=== PATIENT | female | born 1965 | race African-American/Black ===

== ENCOUNTER 2016-06-28 15:48 | Emergency (ER) | payer MEDICAID ==
[~2016-06-28] VITALS: Ht 170.2 cm; Wt 85.0 kg
[~2016-06-28 15:48] MED LIST: BACL20TA PO; DOCU-150 PO; GABA800T97 PO; HYDR-519 PO; OMEP20CA4 PO; RIVA20TA PO; SENN-39 PO; TIZA4CAP6 PO; VENL75CA55 PO
[2016-06-28] MEDS ORDERED: HYDROCODONE/ACETAMINOPHEN 5/325MG TABLET PO ONE (16:30)
[2016-06-28 17:48] LABS: INR 1.6; PARTIAL THROMBOPLASTIN TIME 40.1 sec (24.0-34.0); PROTHROMBIN TIME 16.5 sec
[2016-06-28] MEDS ORDERED: LORAZEPAM 1MG TABLET PO ONE (19:30)
[2016-06-28] MEDS ORDERED: DOCUSATE SODIUM 100MG CAPSULE PO ONE (21:30)
[2016-06-28] MEDS ORDERED: POLYETHYLENE GLYCOL 3350 (17GM) 1 DOSE PACK PO ONE (21:30)
[2016-06-28] MEDS ORDERED: ONDANSETRON 4MG ODT PO ONE (23:00)
[2016-06-29] MEDS ORDERED: NA PHOS,M-B/NA PHOS,DI-BA ENEMA 118ML PR ONE (00:45)
[2016-06-29] MEDS ORDERED: KETOROLAC 60MG/2ML VIAL IM ONE (01:30)
[2016-06-29] MEDS ORDERED: LORAZEPAM 2MG/ML CPJ IM ONE (05:00)
[2016-06-29] MEDS ORDERED: SODIUM CHLORIDE 0.9% 1,000 ML IV ONE (05:15)
[2016-06-29 10:50] VITALS: BP 105/60
== END 2016-06-29 10:54 | disposition home or self-care (01) ==
LOC: ER 15:49
DX: K59.00 Constipation, unspecified (principal); K21.9 Gastro-esophageal reflux disease without esophagitis; Z86.718 Personal history of other venous thrombosis and embolism; G82.20 Paraplegia, unspecified; Z79.01 Long term (current) use of anticoagulants
CPT/HCPCS: 36415; 74000; 85610; 85730; 93970; 96360; 96361; 96372; 99285; C1893; J1885; J2060; J7030; Q0162; Z7610

== ENCOUNTER 2016-10-13 20:27 | Emergency (ER) | payer MEDICARE, MEDICAID ==
[~2016-10-13] VITALS: Ht 167.6 cm; Wt 81.0 kg
[2016-10-13] MEDS ORDERED: MORPHINE SULFATE 10 MG/ML CPJ IM ONE (22:00)
[2016-10-14] MEDS ORDERED: MORPHINE SULFATE 10 MG/ML CPJ IM ONE ×2 (04:00)
[2016-10-14 08:48] VITALS: BP 143/88
== END 2016-10-14 09:47 | disposition home or self-care (01) ==
LOC: ER 20:33
DX: G89.29 Other chronic pain (principal); M79.605 Pain in left leg; M79.604 Pain in right leg; K21.9 Gastro-esophageal reflux disease without esophagitis
CPT/HCPCS: 51702; 93970; 96372; 99284; J2270; A4315

== ENCOUNTER 2017-09-21 06:20 | Emergency (ER) | payer MEDICARE, MEDICAID ==
[~2017-09-21] VITALS: Ht 165.1 cm; Wt 82.0 kg
[~2017-09-21 06:20] MED LIST changes: +SENN-178 PO; -SENN-39 PO
[2017-09-21] MEDS ORDERED: MORPHINE SULFATE 10 MG/ML CPJ IM ONE (07:15)
[2017-09-21] MEDS ORDERED: ONDANSETRON 4MG ODT PO ONE (07:15)
[2017-09-21 11:00] VITALS: BP 122/77
== END 2017-09-21 11:25 | disposition home or self-care (01) ==
LOC: ER 08:36
DX: G89.29 Other chronic pain (principal); M79.605 Pain in left leg; M79.604 Pain in right leg; G82.20 Paraplegia, unspecified
CPT/HCPCS: 96372; 99283; J2270; Q0162

== ENCOUNTER 2017-10-24 18:33 | Emergency (ER) | payer MEDICARE, MEDICAID ==
[~2017-10-24] VITALS: Ht 167.6 cm; Wt 78.0 kg
[2017-10-24] MEDS ORDERED: SODIUM CHLORIDE 0.9% 1,000 ML IV ONE ×2 (18:43→20:01)
[2017-10-24] MEDS ORDERED: HALOPERIDOL LACTATE 5MG/ML VIAL IM ONE (18:45)
[2017-10-24] MEDS ORDERED: LORAZEPAM 2MG/ML CPJ IM ONE (18:45)
[2017-10-24] MEDS ORDERED: LORAZEPAM 2MG/ML CPJ IV ONE ×2 (19:15)
[2017-10-24 19:53] LABS: BASOPHILS % 0.8 % (0.0-2.0); EOSINOPHILS % 1.1 % (0.0-5.0); HEMATOCRIT. 35.2 % (36.0-48.0); HEMOGLOBIN. 11.3 g/dL (12.0-16.0); LYMPHOCYTES % 11.8 % (20.0-50.0); MEAN CORPUSCULAR HEMOGLOBIN 28.4 pg (28.0-32.0); MEAN CORPUSCULAR VOLUME 88.2 fL (81.0-99.0); MEAN PLATELET VOLUME 8.1 fl (7.4-10.4); NEUTROPHILS % 81.3 % (40.0-76.0); PLATELET 407 x1000/uL (130-400); RED CELL DISTRIBUTION WIDTH 14.3 % (11.6-14.6)
[2017-10-24 19:57] LABS: CHLORIDE 109 mEq/L (98-107)
[2017-10-24 20:01] LABS: ETHANOL BLOOD < 10 mg/dL
[2017-10-24 20:04] LABS: CLARITY URINE TURBID (CLEAR); COLOR URINE YELLOW (YELLOW); KETONES URINE NEGATIVE (NEGATIVE); LEUKOCYTE ESTERASE URINE 2+ (NEGATIVE); NITRITE URINE NEGATIVE (NEGATIVE); OCCULT BLOOD URINE 3+ (NEGATIVE); PROTEIN URINE 2+ (NEGATIVE); SPECIFIC GRAVITY URINE 1.022 (1.005-1.030)
[2017-10-24 20:12] LABS: PARTIAL THROMBOPLASTIN TIME 26.6 sec (23.4-31.0); PROTHROMBIN TIME 10.5 sec (9.4-11.6)
[2017-10-24 20:13] LABS: *AMPHETAMINES SCREEN URINE NEGATIVE (NEGATIVE); *BARBITURATES SCREEN URINE NEGATIVE (NEGATIVE); *BENZODIAZEPINES SCREEN URINE NEGATIVE (NEGATIVE); *COCAINE SCREEN URINE NEGATIVE (NEGATIVE)
[2017-10-24 20:14] LABS: CANNABINOID URINE SCREEN NEGATIVE (NEGATIVE); METHADONE URINE SCREEN NEGATIVE (NEGATIVE); OPIATES URINE SCREEN NEGATIVE (NEGATIVE); PHENCYCLIDINE URINE SCREEN NEGATIVE (NEGATIVE)
[2017-10-24 20:27] LABS: HCG SCREEN NEGATIVE
[2017-10-24] MEDS ORDERED: CEFTRIAXONE 1 G PREMIX 50 ML IV ONE (20:36)
[2017-10-25] MEDS ORDERED: DEXTROSE 50% WATER 50ML SYRINGE IV ONE (09:23)
[2017-10-25] MEDS ORDERED: KETOROLAC 30MG/ML VIAL IV ONE (15:15)
[2017-10-25 16:00] VITALS: BP 140/94
== END 2017-10-25 16:40 | disposition home or self-care (01) ==
LOC: ER 18:33
DX: T50.902A Poisoning by unspecified drugs, medicaments and biological substances, intentional self-harm, initial encounter (principal); R41.82 Altered mental status, unspecified; F43.0 Acute stress reaction; R45.1 Restlessness and agitation; F91.8 Other conduct disorders; Y92.098 Other place in other non-institutional residence as the place of occurrence of the external cause; R03.0 Elevated blood-pressure reading, without diagnosis of hypertension; N39.0 Urinary tract infection, site not specified; E87.6 Hypokalemia; R73.9 Hyperglycemia, unspecified; G82.20 Paraplegia, unspecified; Z79.899 Other long term (current) drug therapy; R79.89 Other specified abnormal findings of blood chemistry
CPT/HCPCS: 36415; 70450; 71045; 72125; 80053; 80305; 80307; 80329; 81003; 82962; 84703; 85025; 85610; 85730; 87077; 87086; 87186; 93005; 96361; 96365; 96372; 96375; 99285; G0482; J0696; J1630; J1885; J2060; J7030; J7040

== ENCOUNTER 2017-10-28 20:57 | Emergency (ER) | payer MEDICARE, MEDICAID ==
[~2017-10-28] VITALS: Ht 170.2 cm; Wt 82.0 kg
[2017-10-28] MEDS ORDERED: KETOROLAC 30MG/ML VIAL IV STA (21:56)
[2017-10-28] MEDS ORDERED: DIAZEPAM 5 MG TABLET PO ONE (22:00)
[2017-10-28 22:44] LABS: BASOPHILS % 0.7 % (0.0-2.0); EOSINOPHILS % 1.9 % (0.0-5.0); HEMATOCRIT. 31.8 % (36.0-48.0); HEMOGLOBIN. 10.5 g/dL (12.0-16.0); LYMPHOCYTES % 12.9 % (20.0-50.0); MEAN CORPUSCULAR HEMOGLOBIN 29.1 pg (28.0-32.0); MEAN CORPUSCULAR VOLUME 88.4 fL (81.0-99.0); MEAN PLATELET VOLUME 7.7 fl (7.4-10.4); MONOCYTES % 9.8 % (2.0-8.0); NEUTROPHILS % 74.7 % (40.0-76.0); PLATELET 357 x1000/uL (130-400); RED CELL DISTRIBUTION WIDTH 14.3 % (11.6-14.6)
[2017-10-28] MEDS ORDERED: KETOROLAC 15MG/ML VIAL IV ONE (22:45)
[2017-10-28 22:49] LABS: CHLORIDE 107 mEq/L (98-107)
[2017-10-28 22:50] LABS: INR 1.1; PROTHROMBIN TIME 11.2 sec (9.4-11.6)
[2017-10-28] MEDS ORDERED: POTASSIUM CHLORIDE 20MEQ/PACKET PO ONE (23:30)
[2017-10-29 01:21] LABS: CLARITY URINE CLEAR (CLEAR); COLOR URINE YELLOW (YELLOW); KETONES URINE NEGATIVE (NEGATIVE); LEUKOCYTE ESTERASE URINE TRACE (NEGATIVE); NITRITE URINE NEGATIVE (NEGATIVE); OCCULT BLOOD URINE 1+ (NEGATIVE); PROTEIN URINE NEGATIVE (NEGATIVE); SPECIFIC GRAVITY URINE 1.009 (1.005-1.030)
[2017-10-29 02:46] VITALS: BP 131/81
== END 2017-10-29 05:06 | disposition home or self-care (01) ==
LOC: ER 20:57
DX: N39.0 Urinary tract infection, site not specified (principal)
CPT/HCPCS: 36415; 51702; 80053; 81003; 85025; 85610; 96374; 99284; J1885; 51701

== ENCOUNTER 2017-11-16 11:32 | Inpatient (IN) | payer MEDICARE, MEDICAID ==
[~2017-11-16] VITALS: Ht 185.4 cm; Wt 106.6 kg
[2017-11-16] MEDS ORDERED: LORAZEPAM 2MG/ML CPJ IM ONE ×2 (12:15→18:15)
[2017-11-16 16:45] LABS: COLOR URINE RED (YELLOW); KETONES URINE 1+ (NEGATIVE); LEUKOCYTE ESTERASE URINE 1+ (NEGATIVE); NITRITE URINE POSITIVE (NEGATIVE); OCCULT BLOOD URINE 3+ (NEGATIVE); PROTEIN URINE 3+ (NEGATIVE); SPECIFIC GRAVITY URINE 1.042 (1.005-1.030)
[2017-11-16 16:52] LABS: CLARITY URINE CLOUDY (CLEAR)
[2017-11-16] MEDS ORDERED: KETOROLAC 30MG/ML VIAL IV STA (17:29)
[2017-11-16] MEDS ORDERED: LORAZEPAM 2MG/ML CPJ IV ONE (17:30)
[2017-11-16] MEDS ORDERED: CEFTRIAXONE 1 G PREMIX 50 ML IV ONE (17:30)
[2017-11-16 18:23] LABS: BASOPHILS % 0.8 % (0.0-2.0); EOSINOPHILS % 2.2 % (0.0-5.0); HEMATOCRIT. 38.6 % (36.0-48.0); HEMOGLOBIN. 12.6 g/dL (12.0-16.0); LYMPHOCYTES % 18.1 % (20.0-50.0); MEAN CORPUSCULAR HEMOGLOBIN 29.2 pg (28.0-32.0); MEAN CORPUSCULAR VOLUME 89.7 fL (81.0-99.0); MEAN PLATELET VOLUME 8.2 fl (7.4-10.4); MONOCYTES % 9.8 % (2.0-8.0); NEUTROPHILS % 69.1 % (40.0-76.0); PLATELET 410 x1000/uL (130-400); RED BLOOD CELL COUNT 4.31 mill/uL (4.2-5.4); RED CELL DISTRIBUTION WIDTH 14.4 % (11.6-14.6)
[2017-11-16 18:26] LABS: CHLORIDE 105 mEq/L (98-107); INR 1.1; PROTHROMBIN TIME 10.9 sec (9.1-11.1)
[2017-11-16 18:30] LABS: ETHANOL BLOOD < 10 mg/dL
[2017-11-16] MEDS ORDERED: SODIUM CHLORIDE 0.9% 1,000 ML IV ONE ×3 (19:06→21:56)
[2017-11-16] MEDS ORDERED: IBUPROFEN 600MG TABLET PO PRN (19:15)
[2017-11-16] MEDS ORDERED: SODIUM CHLORIDE 0.9% 1,000 ML IV SCH (19:44)
[2017-11-16] MEDS ORDERED: MEROPENEM 1,000 MG in SODIUM CHLORIDE 0.9% 100 ML IV SCH (19:45)
[2017-11-16] MEDS ORDERED: MAGNESIUM/ALUMINUM HYDROXIDE/SIMETHICONE 30ML UDC PO PRN (19:45)
[2017-11-16] MEDS ORDERED: DOCUSATE SODIUM 100MG CAPSULE PO PRN (19:45)
[2017-11-16] MEDS ORDERED: NITROGLYCERIN 0.4MG TABLET SL SL PRN (19:45)
[2017-11-16] MEDS ORDERED: GUAIFENESIN 200MG/10ML SUGAR FREE UDC PO PRN (19:45)
[2017-11-16] MEDS ORDERED: ACETAMINOPHEN 325MG TABLET PO PRN (19:45)
[2017-11-16] MEDS ORDERED: DIPHENHYDRAMINE 50MG/ML VIAL IV PRN (19:45)
[2017-11-16] MEDS ORDERED: ONDANSETRON HCL 4MG/2ML VIAL IV PRN (19:45)
[2017-11-16 20:00] VITALS: BP 158/83
[2017-11-16] MEDS ORDERED: HALOPERIDOL LACTATE 5MG/ML VIAL IM ONE (20:15)
[2017-11-16] MEDS ORDERED: HALOPERIDOL LACTATE 5MG/ML VIAL IM PRN (20:30)
[2017-11-16] MEDS ORDERED: IPRATROPIUM/ALBUTEROL 0.5-3(2.5)MG/3ML NEB INH PRN (21:00)
[2017-11-16] MEDS ORDERED: ZOLPIDEM TARTRATE 5MG TABLET PO PRN (21:00)
[2017-11-16] MEDS ORDERED: VENLAFAXINE HCL 37.5MG SR CAPSULE 24HR PO SCH (21:00)
[2017-11-16] MEDS ORDERED: NA PHOS,M-B/NA PHOS,DI-BA ENEMA 118ML PR PRN (21:00)
[2017-11-16] MEDS ORDERED: FAMOTIDINE 20MG TABLET PO SCH (21:00)
[2017-11-16] MEDS ORDERED: ASCORBIC ACID 500 MG TABLET PO SCH (21:00)
[2017-11-16 21:38] LABS: *AMPHETAMINES SCREEN URINE NEGATIVE (NEGATIVE); *BARBITURATES SCREEN URINE NEGATIVE (NEGATIVE); *BENZODIAZEPINES SCREEN URINE PRESUMTIVE POSITIVE (NEGATIVE); *COCAINE SCREEN URINE NEGATIVE (NEGATIVE); METHADONE URINE SCREEN NEGATIVE (NEGATIVE); OPIATES URINE SCREEN PRESUMTIVE POSITIVE (NEGATIVE)
[2017-11-16 21:39] LABS: CANNABINOID URINE SCREEN NEGATIVE (NEGATIVE); PHENCYCLIDINE URINE SCREEN NEGATIVE (NEGATIVE)
[2017-11-16 21:45] VITALS: BP 180/103
[2017-11-16] MEDS ORDERED: BACLOFEN 20MG TABLET PO SCH (22:00)
[2017-11-16] MEDS ORDERED: SODIUM CHLORIDE 0.9% 1000ML BAG (SEPSIS BOLUS) IV ONE ×2 (22:15)
[2017-11-16 23:00] VITALS: BP 158/83
[2017-11-16] MEDS: SODIUM CHLORIDE 0.9% 1,000 ML IV SCH (23:00)
[2017-11-16] MEDS ORDERED: ONDANSETRON 4MG ODT PO PRN (23:00)
[2017-11-17] VITALS (7 sets, daily range): BP systolic 90–180; BP diastolic 57–110
[2017-11-17] MEDS: MEROPENEM 1,000 MG in SODIUM CHLORIDE 0.9% 100 ML IV SCH ×3 (01:29→17:35)
[2017-11-17] MEDS: CLONIDINE 0.1MG TABLET PO PRN ×2 (02:07→19:50)
[2017-11-17] MEDS: LORAZEPAM 0.5MG TABLET PO PRN ×2 (02:07→18:57)
[2017-11-17] MEDS: KETOROLAC 15MG/ML VIAL IV PRN ×3 (02:08→19:59)
[2017-11-17] MEDS: BACLOFEN 20MG TABLET PO SCH ×3 (06:03→21:42)
[2017-11-17] MEDS: VENLAFAXINE HCL 37.5MG SR CAPSULE 24HR PO SCH ×2 (09:00→23:00)
[2017-11-17] MEDS ORDERED: ZINC SULFATE 220 MG ( 50 ) CAPSULE PO SCH (09:00)
[2017-11-17] MEDS: ASCORBIC ACID 500 MG TABLET PO SCH ×2 (09:34→21:42)
[2017-11-17] MEDS: FAMOTIDINE 20MG TABLET PO SCH ×2 (09:35→21:42)
[2017-11-17] MEDS: ZINC SULFATE 220 MG ( 50 ) CAPSULE PO SCH (09:35)
[2017-11-17 13:10] LABS: CHLORIDE 109 mEq/L (98-107)
[2017-11-17 13:24] LABS: BASOPHILS % 0.8 % (0.0-2.0); EOSINOPHILS % 3.6 % (0.0-5.0); HEMATOCRIT. 38.2 % (36.0-48.0); HEMOGLOBIN. 12.4 g/dL (12.0-16.0); LYMPHOCYTES % 21.9 % (20.0-50.0); MEAN CORPUSCULAR HEMOGLOBIN 29.3 pg (28.0-32.0); MEAN CORPUSCULAR VOLUME 90.1 fL (81.0-99.0); MEAN PLATELET VOLUME 9.3 fl (7.4-10.4); NEUTROPHILS % 65.7 % (40.0-76.0); PLATELET 345 x1000/uL (130-400); RED BLOOD CELL COUNT 4.24 mill/uL (4.2-5.4); RED CELL DISTRIBUTION WIDTH 14.6 % (11.6-14.6)
[2017-11-17] MEDS: SODIUM CHLORIDE 0.9% 1,000 ML IV SCH (13:33)
[2017-11-17] MEDS ORDERED: RIVAROXABAN 20 MG TABLET PO SCH (17:00)
[2017-11-17] MEDS ORDERED: RIVAROXABAN 10 MG TABLET PO SCH (17:00)
[2017-11-17] MEDS: TRAMADOL 50MG TABLET PO PRN (18:48)
[2017-11-18] VITALS: BP 148/83
[2017-11-18] MEDS: MEROPENEM 1,000 MG in SODIUM CHLORIDE 0.9% 100 ML IV SCH ×2 (01:14→08:33)
[2017-11-18] MEDS: KETOROLAC 15MG/ML VIAL IV PRN ×2 (01:58→08:37)
[2017-11-18] MEDS: LORAZEPAM 0.5MG TABLET PO PRN (03:09)
[2017-11-18 04:00] VITALS: BP 140/88
[2017-11-18] MEDS: BACLOFEN 20MG TABLET PO SCH ×2 (05:04→13:32)
[2017-11-18 08:00] VITALS: BP 150/90
[2017-11-18] MEDS: ASCORBIC ACID 500 MG TABLET PO SCH (08:34)
[2017-11-18] MEDS: VENLAFAXINE HCL 37.5MG SR CAPSULE 24HR PO SCH (08:34)
[2017-11-18] MEDS: FAMOTIDINE 20MG TABLET PO SCH (08:35)
[2017-11-18] MEDS: ZINC SULFATE 220 MG ( 50 ) CAPSULE PO SCH (08:35)
[2017-11-18] MEDS: TRAMADOL 50MG TABLET PO PRN (11:30)
[2017-11-18 12:00] VITALS: BP 174/83
[2017-11-18] MEDS: CLONIDINE 0.1MG TABLET PO PRN (12:27)
[2017-11-18] MEDS ORDERED: POTASSIUM CHLORIDE 20MEQ/PACKET PO SCH (13:00)
[2017-11-18 13:38] VITALS: BP 174/83
[2017-11-18] MEDS ORDERED: MEROPENEM 1,000 MG in SODIUM CHLORIDE 0.9% 100 ML IV SCH (22:00)
== END 2017-11-18 14:35 | disposition home or self-care (01) | DRG 871 ==
LOC: ER 11:32 → 6EST 19:10 → ENRESERV 20:39 → ER 22:05 → EDBEDREQ 22:13
PROVIDERS: ADMIT Internal Medicine; ATTEND Internal Medicine
DX: A41.9 Sepsis, unspecified organism (principal); G92 Toxic encephalopathy; N39.0 Urinary tract infection, site not specified; G82.20 Paraplegia, unspecified; E87.0 Hyperosmolality and hypernatremia; E66.01 Morbid (severe) obesity due to excess calories; L89.629 Pressure ulcer of left heel, unspecified stage; S70.211A Abrasion, right hip, initial encounter; X58.XXXA Exposure to other specified factors, initial encounter; Y93.89 Activity, other specified; Y92.89 Other specified places as the place of occurrence of the external cause; Y99.8 Other external cause status; Z78.1 Physical restraint status; Z86.718 Personal history of other venous thrombosis and embolism; Z68.31 Body mass index [BMI] 31.0-31.9, adult; Z87.828 Personal history of other (healed) physical injury and trauma; Z99.3 Dependence on wheelchair; Z79.01 Long term (current) use of anticoagulants; Z79.899 Other long term (current) drug therapy
CPT/HCPCS: 36415; 51702; 70450; 71045; 76770; 80053; 80305; 81003; 83036; 83605; 84484; 85025; 85610; 87040; 87086; 93005; 93970; 96365; 96366; 96372; 96375; 99285; G0482; J0696; J1200; J1630; J1885; J2060; J2185; J7030; J7050; Q0162; A4315

== ENCOUNTER 2018-07-07 13:39 | Inpatient (IN) | payer MEDICARE, MEDICAID ==
[~2018-07-07] VITALS: Ht 167.6 cm; Wt 72.6 kg
[2018-07-07 15:52] LABS: HEMATOCRIT. 34.3 % (36.0-48.0); HEMOGLOBIN. 11.1 g/dL (12.0-16.0); MEAN CORPUSCULAR HEMOGLOBIN 29.2 pg (28.0-32.0); MEAN CORPUSCULAR VOLUME 90.4 fL (81.0-99.0); MEAN PLATELET VOLUME 7.5 fl (7.4-10.4); PLATELET 343 x1000/uL (130-400); RED BLOOD CELL COUNT 3.79 mill/uL (4.2-5.4); RED CELL DISTRIBUTION WIDTH 16.5 % (11.6-14.6)
[2018-07-07 15:53] LABS: CHLORIDE 103 mEq/L (98-107)
[2018-07-07 15:55] LABS: PARTIAL THROMBOPLASTIN TIME 31.7 sec (23.4-31.0); PROTHROMBIN TIME 10.7 sec (9.6-11.0)
[2018-07-07 16:04] LABS: PLATELET ESTIMATE NORMAL
[2018-07-07] MEDS ORDERED: SODIUM CHLORIDE 0.9% 1000ML BAG (SEPSIS BOLUS) IV ONE (16:45)
[2018-07-07] MEDS ORDERED: CEFTRIAXONE 1 G PREMIX 50 ML IV ONE (16:45)
[2018-07-07] MEDS ORDERED: LEVOFLOXACIN 500MG PREMIX 100 ML IV ONE (16:45)
[2018-07-07] MEDS ORDERED: MAGNESIUM/ALUMINUM HYDROXIDE/SIMETHICONE 30ML UDC PO PRN (17:00)
[2018-07-07] MEDS ORDERED: ACETAMINOPHEN 325MG TABLET PO PRN (17:00)
[2018-07-07] MEDS ORDERED: ONDANSETRON HCL 4MG/2ML INJ IV PRN (17:00)
[2018-07-07] MEDS ORDERED: IPRATROPIUM/ALBUTEROL 0.5-3(2.5)MG/3ML NEB INH PRN (17:00)
[2018-07-07] MEDS ORDERED: GUAIFENESIN 200MG/10ML SUGAR FREE UDC PO PRN (17:00)
[2018-07-07] MEDS ORDERED: LEVOFLOXACIN 500MG PREMIX 100 ML IV SCH (17:00)
[2018-07-07] MEDS ORDERED: DOCUSATE SODIUM 100MG CAPSULE PO PRN (17:00)
[2018-07-07] MEDS ORDERED: NITROGLYCERIN 0.4MG TABLET SL SL PRN (17:00)
[2018-07-07 17:04] LABS: CLARITY URINE TURBID (CLEAR); COLOR URINE YELLOW (YELLOW); KETONES URINE NEGATIVE (NEGATIVE); LEUKOCYTE ESTERASE URINE 3+ (NEGATIVE); NITRITE URINE NEGATIVE (NEGATIVE); OCCULT BLOOD URINE 3+ (NEGATIVE); PH URINE 6.5 (4.5-8.0); PROTEIN URINE 3+ (NEGATIVE); SPECIFIC GRAVITY URINE 1.022 (1.005-1.030); UROBILINOGEN URINE 0.2 E.U./dL (0.2-1.0)
[2018-07-07] MEDS: MORPHINE SULFATE 4 MG/ML CPJ (NOT FOR IM USE) IV PRN (19:06)
[2018-07-07 22:45] VITALS: BP_SYST 100; BP_SYST 113; BP_DIAS 58; BP_DIAS 65
[2018-07-08] VITALS: BP 113/65
[2018-07-08] MEDS: MORPHINE SULFATE 4 MG/ML CPJ (NOT FOR IM USE) IV PRN ×2 (01:07→18:18)
[2018-07-08 04:02] VITALS: BP 101/58
[2018-07-08] MEDS: BACLOFEN 20MG TABLET PO SCH ×3 (06:09→21:47)
[2018-07-08] MEDS: SODIUM CHLORIDE 0.9% 1,000 ML IV SCH (06:12)
[2018-07-08 08:00] VITALS: BP 100/55
[2018-07-08] MEDS: ZINC SULFATE 220 MG ( 50 ) CAPSULE PO SCH (08:52)
[2018-07-08] MEDS: LORAZEPAM 0.5MG TABLET PO PRN (08:52)
[2018-07-08] MEDS: ASCORBIC ACID 500 MG TABLET PO SCH ×2 (08:52→21:47)
[2018-07-08] MEDS: VENLAFAXINE HCL 75MG TABLET PO SCH ×2 (08:52→21:47)
[2018-07-08] MEDS ORDERED: CEFTRIAXONE 1 G PREMIX 50 ML IV SCH (09:00)
[2018-07-08 12:13] VITALS: BP 132/90
[2018-07-08 16:00] VITALS: BP 129/91
[2018-07-08] MEDS: RIVAROXABAN 20 MG TABLET PO SCH (16:35)
[2018-07-08] MEDS: CEFTRIAXONE 1 G PREMIX 50 ML IV SCH (16:36)
[2018-07-08] MEDS: LEVOFLOXACIN 500MG PREMIX 100 ML IV SCH (18:00)
[2018-07-08 20:01] VITALS: BP 131/93
[2018-07-08] MEDS: ZOLPIDEM TARTRATE 5MG TABLET PO PRN (21:47)
[2018-07-08] MEDS: TRAMADOL 50MG TABLET PO PRN (21:47)
[2018-07-09] VITALS: BP 120/82
[2018-07-09] MEDS: MORPHINE SULFATE 4 MG/ML CPJ (NOT FOR IM USE) IV PRN ×4 (00:29→21:52)
[2018-07-09] MEDS: LORAZEPAM 0.5MG TABLET PO PRN ×3 (00:30→23:57)
[2018-07-09] MEDS: SODIUM CHLORIDE 0.9% 1,000 ML IV SCH ×2 (01:31→15:50)
[2018-07-09 04:00] VITALS: BP 141/87
[2018-07-09] MEDS: BACLOFEN 20MG TABLET PO SCH ×3 (07:06→21:28)
[2018-07-09 08:00] VITALS: BP 128/90
[2018-07-09] MEDS: ASCORBIC ACID 500 MG TABLET PO SCH ×2 (08:32→21:28)
[2018-07-09] MEDS: ZINC SULFATE 220 MG ( 50 ) CAPSULE PO SCH (08:32)
[2018-07-09] MEDS: VENLAFAXINE HCL 75MG TABLET PO SCH ×2 (08:32→21:28)
[2018-07-09 12:00] VITALS: BP 153/73
[2018-07-09 16:00] VITALS: BP 142/86
[2018-07-09] MEDS: RIVAROXABAN 20 MG TABLET PO SCH (16:30)
[2018-07-09] MEDS: CEFTRIAXONE 1 G PREMIX 50 ML IV SCH (16:30)
[2018-07-09] MEDS: LEVOFLOXACIN 500MG PREMIX 100 ML IV SCH (18:08)
[2018-07-09 20:00] VITALS: BP 141/76
[2018-07-10] VITALS: BP 128/69
[2018-07-10 04:00] VITALS: BP 135/72
[2018-07-10] MEDS: MORPHINE SULFATE 4 MG/ML CPJ (NOT FOR IM USE) IV PRN ×3 (04:43→20:02)
[2018-07-10] MEDS: BACLOFEN 20MG TABLET PO SCH ×3 (05:40→21:36)
[2018-07-10] MEDS: BACITRACIN/POLYMYXIN B SULFATE OINT 15GM TOP SCH ×2 (09:00→21:47)
[2018-07-10 09:06] VITALS: BP 114/62
[2018-07-10] MEDS: ZINC SULFATE 220 MG ( 50 ) CAPSULE PO SCH (09:18)
[2018-07-10] MEDS: ASCORBIC ACID 500 MG TABLET PO SCH ×2 (09:18→21:36)
[2018-07-10] MEDS: VENLAFAXINE HCL 75MG TABLET PO SCH ×2 (09:18→21:36)
[2018-07-10] MEDS: SODIUM CHLORIDE 0.9% 1,000 ML IV SCH ×2 (09:22→12:56)
[2018-07-10 12:35] VITALS: BP 170/92
[2018-07-10] MEDS: CLONIDINE 0.1MG TABLET PO PRN (12:54)
[2018-07-10] MEDS: CEFTRIAXONE 1 G PREMIX 50 ML IV SCH (16:23)
[2018-07-10] MEDS: RIVAROXABAN 20 MG TABLET PO SCH (16:23)
[2018-07-10] MEDS: LEVOFLOXACIN 500MG PREMIX 100 ML IV SCH (18:38)
[2018-07-10 20:07] VITALS: BP 120/77
[2018-07-10] MEDS: ZOLPIDEM TARTRATE 5MG TABLET PO PRN (21:46)
[2018-07-10] MEDS: TRAMADOL 50MG TABLET PO PRN (21:55)
[2018-07-11 00:08] VITALS: BP 142/85
[2018-07-11] MEDS: MORPHINE SULFATE 4 MG/ML CPJ (NOT FOR IM USE) IV PRN ×3 (03:24→15:49)
[2018-07-11 03:37] VITALS: BP 122/66
[2018-07-11] MEDS: BACLOFEN 20MG TABLET PO SCH ×3 (05:10→21:15)
[2018-07-11] MEDS: SODIUM CHLORIDE 0.9% 1,000 ML IV SCH ×2 (05:10→21:16)
[2018-07-11] MEDS: TRAMADOL 50MG TABLET PO PRN ×3 (05:12→20:18)
[2018-07-11] MEDS: BACITRACIN/POLYMYXIN B SULFATE OINT 15GM TOP SCH ×2 (08:28→20:17)
[2018-07-11] MEDS: ZINC SULFATE 220 MG ( 50 ) CAPSULE PO SCH (08:28)
[2018-07-11] MEDS: ASCORBIC ACID 500 MG TABLET PO SCH ×2 (08:28→20:18)
[2018-07-11] MEDS: VENLAFAXINE HCL 75MG TABLET PO SCH ×2 (08:28→20:17)
[2018-07-11 08:50] VITALS: BP 163/95
[2018-07-11 12:42] VITALS: BP 147/90
[2018-07-11] MEDS: CEFTRIAXONE 1 G PREMIX 50 ML IV SCH (15:44)
[2018-07-11] MEDS ORDERED: BACLOFEN 20MG TABLET PO NR (16:30)
[2018-07-11 16:57] VITALS: BP 159/83
[2018-07-11] MEDS: LEVOFLOXACIN 500MG PREMIX 100 ML IV SCH (18:01)
[2018-07-11] MEDS: RIVAROXABAN 20 MG TABLET PO SCH (18:01)
[2018-07-11] MEDS: ZOLPIDEM TARTRATE 5MG TABLET PO PRN (20:17)
[2018-07-11 20:37] VITALS: BP 158/76
[2018-07-12 00:05] VITALS: BP 147/85
[2018-07-12] MEDS: MORPHINE SULFATE 4 MG/ML CPJ (NOT FOR IM USE) IV PRN ×3 (01:08→18:05)
[2018-07-12 04:00] VITALS: BP 161/75
[2018-07-12] MEDS: TRAMADOL 50MG TABLET PO PRN ×2 (04:51→14:51)
[2018-07-12] MEDS: BACLOFEN 20MG TABLET PO SCH ×2 (05:36→13:17)
[2018-07-12] MEDS: ASCORBIC ACID 500 MG TABLET PO SCH (09:13)
[2018-07-12] MEDS: VENLAFAXINE HCL 75MG TABLET PO SCH (09:13)
[2018-07-12] MEDS: CLONIDINE 0.1MG TABLET PO PRN ×2 (09:14→15:36)
[2018-07-12] MEDS: ZINC SULFATE 220 MG ( 50 ) CAPSULE PO SCH (09:14)
[2018-07-12] MEDS: BACITRACIN/POLYMYXIN B SULFATE OINT 15GM TOP SCH (09:15)
[2018-07-12] MEDS: SODIUM CHLORIDE 0.9% 1,000 ML IV SCH (10:40)
[2018-07-12 13:35] VITALS: BP 148/89
[2018-07-12 16:00] VITALS: BP_SYST 150; BP_SYST 180; BP_DIAS 79; BP_DIAS 92
[2018-07-12] MEDS: CEFTRIAXONE 1 G PREMIX 50 ML IV SCH (16:00)
[2018-07-12] MEDS: LEVOFLOXACIN 500MG PREMIX 100 ML IV SCH (18:00)
[2018-07-12 18:05] VITALS: BP 150/79
[2018-07-12] MEDS: RIVAROXABAN 20 MG TABLET PO SCH (18:05)
== END 2018-07-12 19:25 | disposition left against medical advice (07) | DRG 872 ==
LOC: ER 13:39 → EDBEDREQTM 15:03 → EDBEDREQ 15:03 → EDBEDREQSVC 15:03 → 6WST 16:58 → EDBEDREQTM 17:07 → EDBEDREQ 17:07 → ENRESERV 20:31
PROVIDERS: ADMIT Internal Medicine; ATTEND Internal Medicine
DX: A41.9 Sepsis, unspecified organism (principal); G82.20 Paraplegia, unspecified; I82.411 Acute embolism and thrombosis of right femoral vein; N39.0 Urinary tract infection, site not specified; E86.0 Dehydration; L97.529 Non-pressure chronic ulcer of other part of left foot with unspecified severity; E66.01 Morbid (severe) obesity due to excess calories; E11.621 Type 2 diabetes mellitus with foot ulcer; D63.8 Anemia in other chronic diseases classified elsewhere; F32.9 Major depressive disorder, single episode, unspecified; R29.6 Repeated falls; T14.8XXA Other injury of unspecified body region, initial encounter; X58.XXXA Exposure to other specified factors, initial encounter; L89.629 Pressure ulcer of left heel, unspecified stage; S90.812A Abrasion, left foot, initial encounter; R74.0 Nonspecific elevation of levels of transaminase and lactic acid dehydrogenase [LDH]; L89.312 Pressure ulcer of right buttock, stage 2; Z86.711 Personal history of pulmonary embolism; Z86.718 Personal history of other venous thrombosis and embolism; Z91.81 History of falling; Y93.89 Activity, other specified; Y92.89 Other specified places as the place of occurrence of the external cause; Y99.8 Other external cause status; Z68.25 Body mass index [BMI] 25.0-25.9, adult; Z79.4 Long term (current) use of insulin
CPT/HCPCS: 36415; 71045; 72170; 83036; 83605; 83880; 84145; 84484; 87077; 93005; 93970; 96365; 96366; 99285; J0696; J1956; J2270; J2405; J7030; A4315

== ENCOUNTER 2018-07-29 12:39 | Emergency (ER) | payer MEDICARE, MEDICAID ==
[~2018-07-29] VITALS: Ht 170.2 cm; Wt 76.0 kg
[2018-07-29] MEDS ORDERED: HALOPERIDOL LACTATE 5MG/ML VIAL IM STA (12:56)
[2018-07-29 13:24] LABS: BASOPHILS % 0.7 % (0.0-2.0); EOSINOPHILS % 1.8 % (0.0-5.0); HEMATOCRIT. 37.8 % (36.0-48.0); HEMOGLOBIN. 12.2 g/dL (12.0-16.0); LYMPHOCYTES % 15.7 % (20.0-50.0); MEAN CORPUSCULAR HEMOGLOBIN 29.3 pg (28.0-32.0); MEAN CORPUSCULAR VOLUME 90.9 fL (81.0-99.0); MONOCYTES % 7.2 % (2.0-8.0); NEUTROPHILS % 74.6 % (40.0-76.0); PLATELET 372 x1000/uL (130-400); RED BLOOD CELL COUNT 4.16 mill/uL (4.2-5.4)
[2018-07-29 13:26] LABS: CHLORIDE 108 mEq/L (98-107)
[2018-07-29 13:30] LABS: ETHANOL BLOOD < 10 mg/dL
[2018-07-29 22:35] VITALS: BP 137/67
== END 2018-07-29 22:33 | disposition home or self-care (01) ==
LOC: ER 13:14
DX: T50.901A Poisoning by unspecified drugs, medicaments and biological substances, accidental (unintentional), initial encounter (principal); G82.20 Paraplegia, unspecified; E11.9 Type 2 diabetes mellitus without complications; I10 Essential (primary) hypertension; Y92.89 Other specified places as the place of occurrence of the external cause; Z79.899 Other long term (current) drug therapy
CPT/HCPCS: 36415; 80053; 80307; 80320; 80329; 85025; 93005; 96372; 99284; J1630; G0480

== ENCOUNTER 2018-08-07 07:08 | Inpatient (IN) | payer MEDICARE, MEDICAID ==
[~2018-08-07] VITALS: Ht 175.3 cm; Wt 82.6 kg
[2018-08-07] MEDS ORDERED: HALOPERIDOL LACTATE 5MG/ML VIAL IM STA (07:26)
[2018-08-07] MEDS ORDERED: LORAZEPAM 2MG/ML CPJ IM PRN (07:30)
[2018-08-07 07:43] LABS: BASOPHILS % 0.4 % (0.0-2.0); EOSINOPHILS % 1.8 % (0.0-5.0); HEMATOCRIT. 36.5 % (36.0-48.0); HEMOGLOBIN. 11.6 g/dL (12.0-16.0); LYMPHOCYTES % 10.2 % (20.0-50.0); MEAN CORPUSCULAR HEMOGLOBIN 28.8 pg (28.0-32.0); MEAN CORPUSCULAR VOLUME 90.8 fL (81.0-99.0); MONOCYTES % 7.1 % (2.0-8.0); NEUTROPHILS % 80.5 % (40.0-76.0); PLATELET 348 x1000/uL (130-400); RED BLOOD CELL COUNT 4.02 mill/uL (4.2-5.4); RED CELL DISTRIBUTION WIDTH 15.1 % (11.6-14.6)
[2018-08-07 07:55] LABS: CHLORIDE 107 mEq/L (98-107)
[2018-08-07 08:01] LABS: ETHANOL BLOOD < 10 mg/dL
[2018-08-07 08:20] LABS: CLARITY URINE CLOUDY (CLEAR); COLOR URINE YELLOW (YELLOW); KETONES URINE NEGATIVE (NEGATIVE); LEUKOCYTE ESTERASE URINE 3+ (NEGATIVE); NITRITE URINE NEGATIVE (NEGATIVE); OCCULT BLOOD URINE 3+ (NEGATIVE); PROTEIN URINE 3+ (NEGATIVE)
[2018-08-07 08:40] LABS: *BARBITURATES SCREEN URINE NEGATIVE (NEGATIVE); *BENZODIAZEPINES SCREEN URINE NEGATIVE (NEGATIVE); *COCAINE SCREEN URINE NEGATIVE (NEGATIVE); METHADONE URINE SCREEN NEGATIVE (NEGATIVE); OPIATES URINE SCREEN NEGATIVE (NEGATIVE)
[2018-08-07 08:41] LABS: *AMPHETAMINES SCREEN URINE NEGATIVE (NEGATIVE); CANNABINOID URINE SCREEN NEGATIVE (NEGATIVE); PHENCYCLIDINE URINE SCREEN NEGATIVE (NEGATIVE)
[2018-08-07] MEDS ORDERED: CEFTRIAXONE 1 G PREMIX 50 ML IV ONE (09:30)
[2018-08-07 18:00] VITALS: BP 167/108
[2018-08-07] MEDS ORDERED: CLONIDINE 0.1MG TABLET PO PRN (18:30)
[2018-08-07] MEDS ORDERED: IPRATROPIUM/ALBUTEROL 0.5-3(2.5)MG/3ML NEB INH PRN (18:30)
[2018-08-07] MEDS ORDERED: MAGNESIUM HYDROXIDE 400MG/5ML 30ML UDC PO PRN (18:30)
[2018-08-07] MEDS ORDERED: MAGNESIUM/ALUMINUM HYDROXIDE/SIMETHICONE 30ML UDC PO PRN (18:30)
[2018-08-07] MEDS ORDERED: DIPHENHYDRAMINE 50MG/ML VIAL IV PRN (18:30)
[2018-08-07] MEDS ORDERED: ONDANSETRON HCL 4MG/2ML INJ IV PRN (18:30)
[2018-08-07] MEDS ORDERED: ACETAMINOPHEN 325MG TABLET PO PRN (18:30)
[2018-08-07 20:00] VITALS: BP 168/100
[2018-08-07] MEDS ORDERED: MVI, ADULT NO.1 10 ML, FOLIC ACID 1 MG, THIAMINE HCL 100 MG in SODIUM CHLORIDE 0.9% 1,0... IV NR ×4 (21:00)
[2018-08-07] MEDS: LEVOFLOXACIN 500MG PREMIX 100 ML IV SCH (22:22)
[2018-08-07] MEDS: ENOXAPARIN 40MG/0.4ML SYR SUBCUT SCH (22:23)
[2018-08-07] MEDS: KETOROLAC 30MG/ML VIAL IV PRN (23:45)
[2018-08-08] VITALS: BP 156/91
[2018-08-08] MEDS ORDERED: BACLOFEN 20MG TABLET PO SCH
[2018-08-08] MEDS: LORAZEPAM 2MG/ML CPJ IV PRN ×3 (02:35→21:59)
[2018-08-08 04:00] VITALS: BP 150/80
[2018-08-08 08:00] VITALS: BP 167/87
[2018-08-08] MEDS: BACLOFEN 20MG TABLET PO SCH ×2 (09:38→17:13)
[2018-08-08] MEDS: DOCUSATE SODIUM 250MG CAPSULE PO SCH (09:39)
[2018-08-08 12:00] VITALS: BP 152/94
[2018-08-08 16:00] VITALS: BP 143/89
[2018-08-08 20:00] VITALS: BP 164/94
[2018-08-08] MEDS: LEVOFLOXACIN 500MG PREMIX 100 ML IV SCH (21:59)
[2018-08-08] MEDS: ENOXAPARIN 40MG/0.4ML SYR SUBCUT SCH (21:59)
[2018-08-09] VITALS: BP 128/85
[2018-08-09] MEDS: BACLOFEN 20MG TABLET PO SCH ×3 (01:21→18:00)
[2018-08-09] MEDS: LORAZEPAM 2MG/ML CPJ IV PRN ×3 (02:31→20:12)
[2018-08-09 04:00] VITALS: BP 143/97
[2018-08-09] MEDS: DOCUSATE SODIUM 250MG CAPSULE PO SCH (08:25)
[2018-08-09 12:00] VITALS: BP 168/96
[2018-08-09] MEDS: FLUCONAZOLE 100MG TABLET PO SCH (13:35)
[2018-08-09 16:00] VITALS: BP 180/88
[2018-08-09 20:03] VITALS: BP 112/82
[2018-08-09] MEDS: ENOXAPARIN 40MG/0.4ML SYR SUBCUT SCH (20:12)
[2018-08-09] MEDS: LEVOFLOXACIN 500MG PREMIX 100 ML IV SCH (20:13)
[2018-08-09] MEDS: KETOROLAC 30MG/ML VIAL IV PRN (22:12)
[2018-08-10] VITALS: BP 125/77
[2018-08-10] MEDS: BACLOFEN 20MG TABLET PO SCH ×2 (01:24→08:39)
[2018-08-10 04:00] VITALS: BP 128/77
[2018-08-10] MEDS: LORAZEPAM 2MG/ML CPJ IV PRN (05:40)
[2018-08-10 08:00] VITALS: BP 98/60
[2018-08-10] MEDS: FLUCONAZOLE 100MG TABLET PO SCH (08:38)
[2018-08-10] MEDS: DOCUSATE SODIUM 250MG CAPSULE PO SCH (08:39)
[2018-08-10] MEDS: KETOROLAC 30MG/ML VIAL IV PRN ×2 (11:29→15:57)
[2018-08-10 11:32] VITALS: BP 146/95
[2018-08-10 15:57] VITALS: BP 100/75
== END 2018-08-10 16:20 | disposition home or self-care (01) | DRG 871 ==
LOC: ER 07:08 → 6WST 14:13 → ENRESERV 16:38
PROVIDERS: ADMIT Internal Medicine; ATTEND Internal Medicine
DX: A41.9 Sepsis, unspecified organism (principal); G93.41 Metabolic encephalopathy; G82.20 Paraplegia, unspecified; I82.411 Acute embolism and thrombosis of right femoral vein; N39.0 Urinary tract infection, site not specified; E66.01 Morbid (severe) obesity due to excess calories; I10 Essential (primary) hypertension; S90.812A Abrasion, left foot, initial encounter; X58.XXXA Exposure to other specified factors, initial encounter; S71.011A Laceration without foreign body, right hip, initial encounter; L89.629 Pressure ulcer of left heel, unspecified stage; F32.9 Major depressive disorder, single episode, unspecified; E11.9 Type 2 diabetes mellitus without complications; Z86.711 Personal history of pulmonary embolism; Z95.828 Presence of other vascular implants and grafts; Z79.2 Long term (current) use of antibiotics; Z79.01 Long term (current) use of anticoagulants; Z79.899 Other long term (current) drug therapy; Y93.89 Activity, other specified; Y92.89 Other specified places as the place of occurrence of the external cause; Y99.8 Other external cause status; Z68.26 Body mass index [BMI] 26.0-26.9, adult
CPT/HCPCS: 36415; 80305; 80307; 80320; 80329; 84134; 87077; 87106; 93005; 96365; 96372; 99285; C1893; J0696; J1630; J1650; J1885; J1956; J2060; J3411; J3490; J7030; J7050; G0480

== ENCOUNTER 2018-09-10 03:38 | Emergency (ER) | payer MEDICARE, MEDICAID ==
[~2018-09-10] VITALS: Ht 157.5 cm; Wt 100.0 kg
[2018-09-10] MEDS ORDERED: SODIUM CHLORIDE 0.9% 1,000 ML IV ONE (04:15)
[2018-09-10] MEDS ORDERED: KETOROLAC 30MG/ML VIAL IV ONE (04:15)
[2018-09-10 05:55] LABS: HEMATOCRIT 38.4 % (36.0-48.0); HEMOGLOBIN 12.3 g/dL (12.0-16.0); MEAN CORPUSCULAR HEMOGLOBIN 28.6 pg (28.0-32.0); MEAN CORPUSCULAR VOLUME 89.1 fL (81.0-99.0); PLATELET 355 x1000/uL (130-400); RED BLOOD CELL COUNT 4.31 mill/uL (4.2-5.4)
[2018-09-10 05:58] LABS: CHLORIDE 109 mEq/L (98-107)
[2018-09-10] MEDS ORDERED: HYDROCODONE/ACETAMINOPHEN 5/325MG TABLET PO ONE (12:00)
[2018-09-10 12:41] VITALS: BP 139/93
== END 2018-09-10 12:47 | disposition left against medical advice (07) ==
LOC: ER 03:38 → EDBEDREQ 12:29 → ER 12:47 → CANBEDREQ 14:49
DX: T83.028A Displacement of other urinary catheter, initial encounter (principal); I10 Essential (primary) hypertension; R31.9 Hematuria, unspecified; Z79.899 Other long term (current) drug therapy; Z87.891 Personal history of nicotine dependence; Y92.89 Other specified places as the place of occurrence of the external cause
CPT/HCPCS: 36415; 80053; 85027; 96374; 99283; J1885; J7030

== ENCOUNTER 2018-10-01 21:57 | Emergency (ER) | payer MEDICARE, MEDICAID ==
[~2018-10-01] VITALS: Ht 167.6 cm; Wt 91.0 kg
[2018-10-01] MEDS ORDERED: LORAZEPAM 2MG/ML CPJ IV STA (22:54)
[2018-10-01] MEDS ORDERED: SODIUM CHLORIDE 0.9% 1,000 ML IV ONE (22:54)
[2018-10-01 23:28] LABS: CHLORIDE 107 mEq/L (98-107)
[2018-10-01 23:29] LABS: BASOPHILS % 0.7 % (0.0-2.0); EOSINOPHILS % 2.3 % (0.0-5.0); HEMATOCRIT. 30.9 % (36.0-48.0); HEMOGLOBIN. 10.1 g/dL (12.0-16.0); LYMPHOCYTES % 9.6 % (20.0-50.0); MEAN CORPUSCULAR HEMOGLOBIN 28.9 pg (28.0-32.0); MEAN CORPUSCULAR VOLUME 88.5 fL (81.0-99.0); MEAN PLATELET VOLUME 7.2 fl (7.4-10.4); MONOCYTES % 8.4 % (2.0-8.0); PLATELET 445 x1000/uL (130-400); RED CELL DISTRIBUTION WIDTH 14.5 % (11.6-14.6)
[2018-10-01 23:32] LABS: ETHANOL BLOOD < 10 mg/dL
[2018-10-02 01:09] LABS: CLARITY URINE CLOUDY (CLEAR); COLOR URINE YELLOW (YELLOW); KETONES URINE TRACE (NEGATIVE); LEUKOCYTE ESTERASE URINE 2+ (NEGATIVE); NITRITE URINE NEGATIVE (NEGATIVE); OCCULT BLOOD URINE 3+ (NEGATIVE); PH URINE 5.5 (4.5-8.0); PROTEIN URINE 2+ (NEGATIVE); SPECIFIC GRAVITY URINE 1.027 (1.005-1.030)
[2018-10-02 01:19] LABS: *AMPHETAMINES SCREEN URINE NEGATIVE (NEGATIVE); *BARBITURATES SCREEN URINE NEGATIVE (NEGATIVE); *BENZODIAZEPINES SCREEN URINE NEGATIVE (NEGATIVE); *COCAINE SCREEN URINE NEGATIVE (NEGATIVE); CANNABINOID URINE SCREEN NEGATIVE (NEGATIVE); METHADONE URINE SCREEN NEGATIVE (NEGATIVE); OPIATES URINE SCREEN NEGATIVE (NEGATIVE)
[2018-10-02 01:20] LABS: PHENCYCLIDINE URINE SCREEN NEGATIVE (NEGATIVE)
[2018-10-02] MEDS ORDERED: POTASSIUM CHLORIDE 20MEQ TABLET SR PO ONE (01:45)
[2018-10-02] MEDS ORDERED: SODIUM CHLORIDE 0.9% 1,000 ML IV ONE (03:00)
[2018-10-02] MEDS ORDERED: LORAZEPAM 0.5MG TABLET PO ONE (03:00)
[2018-10-02] MEDS ORDERED: CEFTRIAXONE 1 G PREMIX 50 ML IV ONE (03:00)
[2018-10-02] MEDS ORDERED: CLONIDINE 0.1MG TABLET PO ONE (06:00)
[2018-10-02 06:01] VITALS: BP 159/96
== END 2018-10-02 06:12 | disposition home or self-care (01) ==
LOC: ER 21:57
DX: N30.00 Acute cystitis without hematuria (principal); E87.6 Hypokalemia; R45.1 Restlessness and agitation; I10 Essential (primary) hypertension; Z79.899 Other long term (current) drug therapy; G82.20 Paraplegia, unspecified
CPT/HCPCS: 36415; 71045; 80053; 80305; 80307; 80320; 80329; 81003; 85025; 87077; 87086; 87186; 96365; 96375; 99284; J0696; J2060; J7030; G0480

== ENCOUNTER 2019-01-11 21:04 | Inpatient (IN) | payer MEDICARE, MEDICAID ==
[~2019-01-11] VITALS: Ht 157.5 cm; Wt 72.6 kg
[2019-01-11] MEDS ORDERED: MORPHINE SULFATE 4 MG/ML CPJ (NOT FOR IM USE) IV STA (21:36)
[2019-01-11] MEDS ORDERED: ONDANSETRON HCL 4MG/2ML INJ IV STA (21:36)
[2019-01-11] MEDS ORDERED: SODIUM CHLORIDE 0.9% 1000ML BAG (SEPSIS BOLUS) IV ONE (21:45)
[2019-01-11] MEDS ORDERED: PIPERACILLIN/TAZ 3.375G PREMIX 50 ML IV ONE (21:45)
[2019-01-11] MEDS ORDERED: VANCOMYCIN 1 G PREMIX 200 ML IV ONE (21:45)
[2019-01-11 23:51] LABS: BASOPHILS % 0.6 % (0.0-2.0); EOSINOPHILS % 0.7 % (0.0-5.0); HEMATOCRIT. 34.5 % (36.0-48.0); HEMOGLOBIN. 10.9 g/dL (12.0-16.0); LYMPHOCYTES % 13.1 % (20.0-50.0); MEAN CORPUSCULAR HEMOGLOBIN 26.3 pg (28.0-32.0); MEAN PLATELET VOLUME 7.4 fl (7.4-10.4); MONOCYTES % 5.6 % (2.0-8.0); PLATELET 809 x1000/uL (130-400); RED BLOOD CELL COUNT 4.15 mill/uL (4.2-5.4); RED CELL DISTRIBUTION WIDTH 15.3 % (11.6-14.6)
[2019-01-11 23:58] LABS: CHLORIDE 106 mEq/L (98-107); INR 1.1; PROTHROMBIN TIME 10.8 sec (9.6-11.0)
[2019-01-12] MEDS ORDERED: MORPHINE SULFATE 4 MG/ML CPJ (NOT FOR IM USE) IV ONE (01:00)
[2019-01-12] MEDS ORDERED: ONDANSETRON HCL 4MG/2ML INJ IV ONE (01:00)
[2019-01-12] MEDS ORDERED: LORAZEPAM 2MG/ML CPJ IV ONE (01:45)
[2019-01-12 04:00] VITALS: BP 140/99
[2019-01-12 07:57] VITALS: BP 146/99
[2019-01-12 08:00] VITALS: BP 159/104
[2019-01-12] MEDS: AMLODIPINE 5MG TABLET PO SCH ×2 (09:04→21:15)
[2019-01-12] MEDS: ONDANSETRON HCL 4MG/2ML INJ IV PRN ×3 (09:04→22:38)
[2019-01-12] MEDS: CLONIDINE 0.1MG TABLET PO PRN ×2 (09:04→18:37)
[2019-01-12] MEDS: MORPHINE SULFATE 2 MG/ML CPJ (NOT FOR IM USE) IV PRN ×2 (09:05→21:29)
[2019-01-12] MEDS ORDERED: VANCOMYCIN 1 G PREMIX 200 ML IV SCH (10:00)
[2019-01-12] MEDS: PIPERACILLIN/TAZOBACTAM 3.375 G in DEXT 5% WATER 100 ML IV SCH ×2 (10:18→18:20)
[2019-01-12 12:00] VITALS: BP 180/85
[2019-01-12] MEDS ORDERED: LIDOCAINE HCL 1% 20ML VIAL (Pyxis) INJ ONE (13:50)
[2019-01-12] MEDS ORDERED: SODIUM BICARBONATE 4% (2.4MEQ) 5ML VIAL IV ONE (13:51)
[2019-01-12] MEDS: DEXT 5%/0.45% NACL 1000ML 1,000 ML IV SCH (15:59)
[2019-01-12 16:00] VITALS: BP 144/102
[2019-01-12] MEDS ORDERED: SODIUM HYPOCHLORITE 0.125% 473ML SOLUTION TOP SCH (18:00)
[2019-01-12 20:25] VITALS: BP 148/84
[2019-01-12] MEDS: LORAZEPAM 2MG/ML CPJ IV PRN (22:38)
[2019-01-12] MEDS ORDERED: LIDOCAINE 1%/EPI 1:100,000 10 ML VIAL IJ SCH (23:00)
[2019-01-13 00:34] VITALS: BP 139/80
[2019-01-13] MEDS: PIPERACILLIN/TAZOBACTAM 3.375 G in DEXT 5% WATER 100 ML IV SCH ×3 (02:00→17:00)
[2019-01-13 04:34] VITALS: BP 108/75
[2019-01-13] MEDS: MORPHINE SULFATE 2 MG/ML CPJ (NOT FOR IM USE) IV PRN ×3 (06:30→18:27)
[2019-01-13] MEDS: DEXT 5%/0.45% NACL 1000ML 1,000 ML IV SCH ×2 (06:40→16:01)
[2019-01-13] MEDS: ONDANSETRON HCL 4MG/2ML INJ IV PRN ×2 (06:40→16:59)
[2019-01-13 08:00] VITALS: BP 115/83
[2019-01-13] MEDS: AMLODIPINE 5MG TABLET PO SCH ×2 (09:28→22:39)
[2019-01-13 12:00] VITALS: BP 130/88
[2019-01-13] MEDS: LINEZOLID 600 MG PREMIX 300 ML IV SCH (13:07)
[2019-01-13] MEDS: HYDROCODONE/ACETAMINOPHEN 10/325MG TABLET PO PRN ×2 (15:48→22:45)
[2019-01-13 16:00] VITALS: BP 132/79
[2019-01-13 17:34] LABS: CLARITY URINE TURBID (CLEAR); COLOR URINE YELLOW (YELLOW); KETONES URINE NEGATIVE (NEGATIVE); LEUKOCYTE ESTERASE URINE 1+ (NEGATIVE); NITRITE URINE POSITIVE (NEGATIVE); OCCULT BLOOD URINE 2+ (NEGATIVE); PROTEIN URINE 3+ (NEGATIVE); SPECIFIC GRAVITY URINE 1.027 (1.005-1.030)
[2019-01-13 17:53] LABS: *AMPHETAMINES SCREEN URINE NEGATIVE (NEGATIVE); *BARBITURATES SCREEN URINE NEGATIVE (NEGATIVE); *BENZODIAZEPINES SCREEN URINE NEGATIVE (NEGATIVE); *COCAINE SCREEN URINE NEGATIVE (NEGATIVE); CANNABINOID URINE SCREEN NEGATIVE (NEGATIVE); METHADONE URINE SCREEN NEGATIVE (NEGATIVE); OPIATES URINE SCREEN PRESUMTIVE POSITIVE (NEGATIVE); PHENCYCLIDINE URINE SCREEN NEGATIVE (NEGATIVE)
[2019-01-13 20:00] VITALS: BP 132/88
[2019-01-13] MEDS: SODIUM HYPOCHLORITE 0.125% 473ML SOLUTION TOP SCH (22:44)
[2019-01-14] VITALS: BP 154/78
[2019-01-14 00:40] LABS: BASOPHILS % 0.7 % (0.0-2.0); EOSINOPHILS % 0.4 % (0.0-5.0); HEMATOCRIT. 33.2 % (36.0-48.0); HEMOGLOBIN. 10.7 g/dL (12.0-16.0); LYMPHOCYTES % 9.8 % (20.0-50.0); MEAN CORPUSCULAR HEMOGLOBIN 26.9 pg (28.0-32.0); MEAN CORPUSCULAR VOLUME 83.1 fL (81.0-99.0); MEAN PLATELET VOLUME 7.1 fl (7.4-10.4); MONOCYTES % 8.9 % (2.0-8.0); NEUTROPHILS % 80.2 % (40.0-76.0); PLATELET 877 x1000/uL (130-400); RED BLOOD CELL COUNT 3.99 mill/uL (4.2-5.4); RED CELL DISTRIBUTION WIDTH 15.5 % (11.6-14.6)
[2019-01-14] MEDS: MORPHINE SULFATE 2 MG/ML CPJ (NOT FOR IM USE) IV PRN ×3 (00:43→15:30)
[2019-01-14 00:49] LABS: CHLORIDE 106 mEq/L (98-107)
[2019-01-14] MEDS: LINEZOLID 600 MG PREMIX 300 ML IV SCH ×2 (01:52→13:47)
[2019-01-14] MEDS: PIPERACILLIN/TAZOBACTAM 3.375 G in DEXT 5% WATER 100 ML IV SCH ×3 (01:52→19:12)
[2019-01-14] MEDS: LORAZEPAM 2MG/ML CPJ IV PRN ×3 (02:39→20:49)
[2019-01-14 04:00] VITALS: BP 148/69
[2019-01-14] MEDS: DEXT 5%/0.45% NACL 1000ML 1,000 ML IV SCH ×2 (05:43→19:12)
[2019-01-14 08:00] VITALS: BP 154/78
[2019-01-14 08:11] LABS: BASOPHILS % 0.6 % (0.0-2.0); EOSINOPHILS % 0.5 % (0.0-5.0); HEMATOCRIT. 31.8 % (36.0-48.0); HEMOGLOBIN. 10.1 g/dL (12.0-16.0); LYMPHOCYTES % 12.6 % (20.0-50.0); MEAN CORPUSCULAR HEMOGLOBIN 26.4 pg (28.0-32.0); MEAN CORPUSCULAR VOLUME 83.2 fL (81.0-99.0); MEAN PLATELET VOLUME 7.3 fl (7.4-10.4); MONOCYTES % 8.4 % (2.0-8.0); NEUTROPHILS % 77.9 % (40.0-76.0); PLATELET 854 x1000/uL (130-400); RED BLOOD CELL COUNT 3.83 mill/uL (4.2-5.4); RED CELL DISTRIBUTION WIDTH 15.6 % (11.6-14.6)
[2019-01-14 08:27] LABS: CHLORIDE 104 mEq/L (98-107)
[2019-01-14] MEDS: AMLODIPINE 5MG TABLET PO SCH ×2 (09:30→20:49)
[2019-01-14] MEDS: SODIUM HYPOCHLORITE 0.125% 473ML SOLUTION TOP SCH ×2 (09:31→20:49)
[2019-01-14 12:00] VITALS: BP 93/59
[2019-01-14] MEDS ORDERED: POTASSIUM CHLORIDE 20MEQ TABLET SR PO NR (13:45)
[2019-01-14 16:00] VITALS: BP 143/91
[2019-01-14] MEDS: TIZANIDINE HCL 2MG TABLET PO PRN (18:06)
[2019-01-14 20:00] VITALS: BP 107/74
[2019-01-15] VITALS: BP 144/93
[2019-01-15] MEDS: MORPHINE SULFATE 2 MG/ML CPJ (NOT FOR IM USE) IV PRN ×3 (00:32→14:18)
[2019-01-15] MEDS: TIZANIDINE HCL 2MG TABLET PO PRN ×3 (01:03→21:19)
[2019-01-15] MEDS: PIPERACILLIN/TAZOBACTAM 3.375 G in DEXT 5% WATER 100 ML IV SCH ×2 (01:06→11:32)
[2019-01-15] MEDS: LINEZOLID 600 MG PREMIX 300 ML IV SCH ×2 (01:08→13:09)
[2019-01-15] MEDS: METOCLOPRAMIDE HCL 10MG/2ML VIAL IV PRN (02:54)
[2019-01-15] MEDS: LORAZEPAM 2MG/ML CPJ IV PRN ×3 (03:03→18:47)
[2019-01-15 04:00] VITALS: BP 101/62
[2019-01-15 08:00] VITALS: BP 154/101
[2019-01-15 08:26] LABS: BASOPHILS % 0.6 % (0.0-2.0); EOSINOPHILS % 0.8 % (0.0-5.0); HEMATOCRIT. 31.9 % (36.0-48.0); HEMOGLOBIN. 10.3 g/dL (12.0-16.0); LYMPHOCYTES % 14.3 % (20.0-50.0); MEAN CORPUSCULAR HEMOGLOBIN 26.6 pg (28.0-32.0); MEAN CORPUSCULAR VOLUME 82.9 fL (81.0-99.0); MEAN PLATELET VOLUME 7.2 fl (7.4-10.4); MONOCYTES % 6.5 % (2.0-8.0); NEUTROPHILS % 77.8 % (40.0-76.0); PLATELET 799 x1000/uL (130-400); RED BLOOD CELL COUNT 3.85 mill/uL (4.2-5.4); RED CELL DISTRIBUTION WIDTH 15.6 % (11.6-14.6)
[2019-01-15] MEDS: AMLODIPINE 5MG TABLET PO SCH ×2 (08:52→21:00)
[2019-01-15 08:55] LABS: CHLORIDE 101 mEq/L (98-107)
[2019-01-15] MEDS: SODIUM HYPOCHLORITE 0.125% 473ML SOLUTION TOP SCH ×2 (09:00→21:19)
[2019-01-15] MEDS: DEXT 5%/0.45% NACL 1000ML 1,000 ML IV SCH (11:32)
[2019-01-15 12:00] VITALS: BP 164/89
[2019-01-15] MEDS: CLONIDINE 0.1MG TABLET PO PRN (14:18)
[2019-01-15 16:00] VITALS: BP 114/74
[2019-01-15] MEDS: HYDROCODONE/ACETAMINOPHEN 10/325MG TABLET PO PRN (16:39)
[2019-01-15] MEDS: LOSARTAN POTASSIUM 25 MG TABLET PO SCH (16:40)
[2019-01-15 20:00] VITALS: BP 92/60
[2019-01-15] MEDS: CEFAZOLIN 2,000 MG in DEXT 5% WATER 100 ML IV SCH (21:18)
[2019-01-15] MEDS: DOXYCYCLINE HYCLATE 100MG CAPSULE PO SCH (21:19)
[2019-01-16] VITALS (10 sets, daily range): BP systolic 74–125; BP diastolic 39–80
[2019-01-16] MEDS ORDERED: SODIUM CHLORIDE 0.9% 1,000 ML IV ONE ×2 (02:15→05:00)
[2019-01-16] MEDS: LORAZEPAM 2MG/ML CPJ IV PRN ×3 (02:59→17:18)
[2019-01-16] MEDS: CEFAZOLIN 2,000 MG in DEXT 5% WATER 100 ML IV SCH ×3 (04:36→20:04)
[2019-01-16] MEDS: TIZANIDINE HCL 2MG TABLET PO PRN (05:58)
[2019-01-16] MEDS: MORPHINE SULFATE 2 MG/ML CPJ (NOT FOR IM USE) IV PRN ×3 (07:20→21:07)
[2019-01-16 08:02] LABS: BASOPHILS % 0.7 % (0.0-2.0); EOSINOPHILS % 1.6 % (0.0-5.0); HEMATOCRIT. 30.7 % (36.0-48.0); HEMOGLOBIN. 9.8 g/dL (12.0-16.0); LYMPHOCYTES % 17.2 % (20.0-50.0); MEAN CORPUSCULAR HEMOGLOBIN 26.6 pg (28.0-32.0); MEAN CORPUSCULAR VOLUME 83.4 fL (81.0-99.0); MONOCYTES % 6.9 % (2.0-8.0); NEUTROPHILS % 73.6 % (40.0-76.0); PLATELET 685 x1000/uL (130-400); RED BLOOD CELL COUNT 3.68 mill/uL (4.2-5.4); RED CELL DISTRIBUTION WIDTH 15.8 % (11.6-14.6)
[2019-01-16 08:12] LABS: CHLORIDE 103 mEq/L (98-107)
[2019-01-16] MEDS: DOXYCYCLINE HYCLATE 100MG CAPSULE PO SCH ×2 (09:00→21:08)
[2019-01-16] MEDS: SODIUM HYPOCHLORITE 0.125% 473ML SOLUTION TOP SCH ×2 (09:00→21:08)
[2019-01-16] MEDS: LOSARTAN POTASSIUM 25 MG TABLET PO SCH (09:00)
[2019-01-16] MEDS: AMLODIPINE 5MG TABLET PO SCH ×2 (09:01→21:08)
[2019-01-16] MEDS ORDERED: POTASSIUM CHLORIDE 20MEQ TABLET SR PO NR (09:45)
[2019-01-16] MEDS: METOCLOPRAMIDE HCL 10MG/2ML VIAL IV PRN (22:12)
[2019-01-16] MEDS: GABAPENTIN 400MG CAPSULE PO SCH (22:44)
[2019-01-16] MEDS: BACLOFEN 20MG TABLET PO SCH (22:44)
[2019-01-16] MEDS: CLONIDINE 0.1MG TABLET PO PRN (23:56)
[2019-01-17 00:12] VITALS: BP 162/84
[2019-01-17] MEDS: LORAZEPAM 2MG/ML CPJ IV PRN (00:51)
[2019-01-17] MEDS: CEFAZOLIN 2,000 MG in DEXT 5% WATER 100 ML IV SCH ×2 (03:55→13:11)
[2019-01-17 04:00] VITALS: BP 134/85
[2019-01-17] MEDS: BACLOFEN 20MG TABLET PO SCH ×3 (06:00→22:00)
[2019-01-17] MEDS: GABAPENTIN 400MG CAPSULE PO SCH ×3 (06:00→22:00)
[2019-01-17 07:40] LABS: EOSINOPHILS % 2.1 % (0.0-5.0); HEMATOCRIT. 29.3 % (36.0-48.0); HEMOGLOBIN. 9.6 g/dL (12.0-16.0); LYMPHOCYTES % 18.8 % (20.0-50.0); MEAN CORPUSCULAR HEMOGLOBIN 27.2 pg (28.0-32.0); MEAN CORPUSCULAR VOLUME 82.9 fL (81.0-99.0); MEAN PLATELET VOLUME 7.1 fl (7.4-10.4); MONOCYTES % 7.2 % (2.0-8.0); NEUTROPHILS % 70.9 % (40.0-76.0); PLATELET 629 x1000/uL (130-400); RED BLOOD CELL COUNT 3.53 mill/uL (4.2-5.4); RED CELL DISTRIBUTION WIDTH 15.6 % (11.6-14.6)
[2019-01-17] MEDS ORDERED: LIDOCAINE HCL 1% 20ML VIAL (Pyxis) INJ ONE (07:55)
[2019-01-17] MEDS ORDERED: SODIUM CHLORIDE 0.9% 10ML VIAL ONE (07:55)
[2019-01-17] MEDS ORDERED: SODIUM BICARBONATE 4% (2.4MEQ) 5ML VIAL IV ONE (07:55)
[2019-01-17 07:57] LABS: CHLORIDE 105 mEq/L (98-107)
[2019-01-17 08:00] VITALS: BP 119/84
[2019-01-17] MEDS: AMLODIPINE 5MG TABLET PO SCH ×2 (09:00→21:00)
[2019-01-17] MEDS: HYDROCODONE/ACETAMINOPHEN 10/325MG TABLET PO PRN (10:26)
[2019-01-17] MEDS: DOXYCYCLINE HYCLATE 100MG CAPSULE PO SCH ×2 (10:27→21:00)
[2019-01-17] MEDS: LOSARTAN POTASSIUM 25 MG TABLET PO SCH (10:27)
[2019-01-17] MEDS: SODIUM HYPOCHLORITE 0.125% 473ML SOLUTION TOP SCH (10:33)
[2019-01-17] MEDS ORDERED: LORAZEPAM 2MG/ML CPJ IV NR (13:15)
[2019-01-17] MEDS ORDERED: CEPH-569 MT (16:44)
[2019-01-17] MEDS ORDERED: HYDR-4001 MT (16:44)
[2019-01-17 18:40] VITALS: BP 119/84
[2019-01-17 20:00] VITALS: BP 120/79
[2019-01-17] MEDS: MORPHINE SULFATE 2 MG/ML CPJ (NOT FOR IM USE) IV PRN (20:40)
[2019-01-17] MEDS: TIZANIDINE HCL 2MG TABLET PO PRN (21:58)
[2019-01-18] VITALS: BP 69/38
[2019-01-18] MEDS: LORAZEPAM 2MG/ML CPJ IV PRN ×2 (01:45→08:54)
[2019-01-18] MEDS ORDERED: SODIUM CHLORIDE 0.9% 1,000 ML IV SCH (02:45)
[2019-01-18] MEDS: CEFAZOLIN 2,000 MG in DEXT 5% WATER 100 ML IV SCH (03:51)
[2019-01-18] MEDS: SODIUM HYPOCHLORITE 0.125% 473ML SOLUTION TOP SCH ×2 (03:52→13:50)
[2019-01-18 04:00] VITALS: BP 99/67
[2019-01-18] MEDS: GABAPENTIN 400MG CAPSULE PO SCH ×2 (06:25→13:48)
[2019-01-18] MEDS: BACLOFEN 20MG TABLET PO SCH ×2 (06:28→13:50)
[2019-01-18 08:00] VITALS: BP 142/88
[2019-01-18 12:00] VITALS: BP_SYST 109; BP_SYST 138; BP_DIAS 56; BP_DIAS 83
[2019-01-18] MEDS ORDERED: HYDR-4001 MT (13:41)
[2019-01-18] MEDS: LOSARTAN POTASSIUM 25 MG TABLET PO SCH (13:48)
[2019-01-18] MEDS: BISACODYL 10MG SUPP PR SCH (13:49)
[2019-01-18] MEDS: DOXYCYCLINE HYCLATE 100MG CAPSULE PO SCH ×2 (13:50→21:00)
[2019-01-18] MEDS ORDERED: LORAZEPAM 2MG/ML CPJ IV NR (14:00)
[2019-01-18] MEDS ORDERED: ASCORBIC ACID 500 MG TABLET PO SCH (14:45)
[2019-01-18 16:00] VITALS: BP 131/90
[2019-01-18 20:00] VITALS: BP 153/102
[2019-01-18] MEDS: MORPHINE SULFATE 2 MG/ML CPJ (NOT FOR IM USE) IV PRN (20:48)
[2019-01-18] MEDS ORDERED: HALOPERIDOL LACTATE 5MG/ML VIAL IM PRN (22:30)
[2019-01-19] MEDS: KETOROLAC 15MG/ML VIAL IM PRN ×2 (00:04→06:46)
[2019-01-19] MEDS: OXYCODONE HCL/ACETAMINOPHEN 5/325MG TABLET PO PRN ×3 (00:05→10:31)
[2019-01-19] MEDS: BACLOFEN 20MG TABLET PO SCH ×3 (00:25→14:50)
[2019-01-19] MEDS: GABAPENTIN 400MG CAPSULE PO SCH ×3 (00:25→14:49)
[2019-01-19] MEDS: TIZANIDINE HCL 2MG TABLET PO PRN ×3 (00:26→17:13)
[2019-01-19] MEDS: SODIUM HYPOCHLORITE 0.125% 473ML SOLUTION TOP SCH ×2 (00:26→09:00)
[2019-01-19 00:27] VITALS: BP 147/86
[2019-01-19 04:00] VITALS: BP 97/43
[2019-01-19 08:35] VITALS: BP 91/53
[2019-01-19] MEDS: LOSARTAN POTASSIUM 25 MG TABLET PO SCH (09:00)
[2019-01-19] MEDS: BISACODYL 10MG SUPP PR SCH (09:00)
[2019-01-19] MEDS: DOXYCYCLINE HYCLATE 100MG CAPSULE PO SCH (09:00)
[2019-01-19] MEDS ORDERED: ZINC SULFATE 220 MG ( 50 ) CAPSULE PO SCH (11:00)
[2019-01-19 12:18] VITALS: BP 88/54
[2019-01-19] MEDS ORDERED: MIDODRINE HCL 5MG TABLET PO SCH (14:00)
[2019-01-19] MEDS ORDERED: OXYCODONE HCL/ACETAMINOPHEN 5/325MG TABLET PO PRN (14:00)
[2019-01-19] MEDS: CEPHALEXIN 250MG CAPSULE PO SCH ×2 (14:49→17:12)
[2019-01-19 15:58] VITALS: BP 98/55
[2019-01-19] MEDS ORDERED: LACTULOSE 20G/30ML UDC PO SCH (16:37)
[2019-01-19] MEDS ORDERED: LACTULOSE 20G/30ML UDC PO STA (16:38)
== END 2019-01-19 18:27 | disposition home or self-care (01) | DRG 853 ==
LOC: ER 21:04 → 6WST 01-12 00:58 → EDBEDREQSVC 01-12 01:19 → EDBEDREQDT 01-12 01:19 → EDBEDREQTM 01-12 01:19 → EDBEDREQ 01-12 01:19 → ENRESERV 01-12 03:02 → 6WST 01-12 05:57
PROVIDERS: ADMIT Internal Medicine Nephrology; ATTEND Internal Medicine Nephrology
PROC: 02HV33Z Insertion of Infusion Device into Superior Vena Cava, Percutaneous Approach (ICD-10-PCS; 2019-01-12)
PROC: B5181ZA Fluoroscopy of Superior Vena Cava using Low Osmolar Contrast, Guidance (ICD-10-PCS; 2019-01-12)
PROC: B548ZZA Ultrasonography of Superior Vena Cava, Guidance (ICD-10-PCS; 2019-01-12)
PROC: 0QB20ZZ Excision of Right Pelvic Bone, Open Approach (ICD-10-PCS; principal; 2019-01-13)
PROC: 0S993ZZ Drainage of Right Hip Joint, Percutaneous Approach (ICD-10-PCS; 2019-01-17)
DX: A41.9 Sepsis, unspecified organism (principal); L89.314 Pressure ulcer of right buttock, stage 4; G82.20 Paraplegia, unspecified; M00.9 Pyogenic arthritis, unspecified; E46 Unspecified protein-calorie malnutrition; K59.2 Neurogenic bowel, not elsewhere classified; E16.2 Hypoglycemia, unspecified; I10 Essential (primary) hypertension; B96.4 Proteus (mirabilis) (morganii) as the cause of diseases classified elsewhere; B96.20 Unspecified Escherichia coli [E. coli] as the cause of diseases classified elsewhere; D64.9 Anemia, unspecified; G89.4 Chronic pain syndrome; N31.9 Neuromuscular dysfunction of bladder, unspecified; Z86.718 Personal history of other venous thrombosis and embolism; Z68.29 Body mass index [BMI] 29.0-29.9, adult
CPT/HCPCS: 20611; 36415; 36573; 71045; 72192; 74018; 77002; 80048; 80305; 81003; 82962; 83605; 84134; 84145; 84484; 87070; 87075; 87077; 87186; 93005; 93970; 96365; 99285; C1725; C1893; J0690; J1630; J1885; J2020; J2060; J2270; J2405; J2543; J2765; J3370; J3490; J7030; J7040; J7060